=== PATIENT | female | born 1990 | race African-American/Black ===

== ENCOUNTER 2017-09-13 10:52 | Emergency (ER) | payer MEDICAID ==
--- NOTE | 2017-09-13 12:53 | ULT ---
RIGHT LOWER EXTREMITY VENOUS ULTRASOUND: HISTORY: Bilateral leg pain and discoloration of the right leg. TECHNIQUE: Multiplanar Cherry scale and color Doppler images are obtained in a right lower extremity venous ultra sound. Spectral analysis of the Doppler wave-forms was performed. FINDINGS: The right common femoral vein, profunda femoral vein, superficial femoral vein, and popliteal vein ar e normal in appearance without visible thrombus. These vessels demonstrate normal compression, flow, and augmentation. The right posterior tibial vein and greater saphenous vein are also patent. IMPRESSION: No evidence of deep venous thrombus. POS: [facility]
== END 2017-09-13 14:00 | disposition home or self-care (01) ==
LOC: ERS 10:52
DX: J06.9 Acute upper respiratory infection, unspecified (principal); D64.9 Anemia, unspecified; I10 Essential (primary) hypertension; F41.9 Anxiety disorder, unspecified

== ENCOUNTER 2017-12-01 00:54 | Emergency (ER) | payer SELFPAY ==
[2017-12-01] MEDS ORDERED: Ondansetron ODT 4 MG TAB ONE (01:32)
[2017-12-01] MEDS ORDERED: Famotidine 40 MG/4 ML VIAL SLOW IVP SCH (01:45)
[2017-12-01 01:48] LABS: #Basophils 0.2 thou/uL (0.0-0.2); #Eosinphils 0.5 thou/uL (0.0-0.7); #Lymphocytes 4.1 thou/uL (1.20-3.40); #Monocytes 0.6 thou/uL (0.11-0.59); %Basophils 1.6 % (0.0-1.0); %Eosinophils 5.1 % (0.0-10.0); %Lymphocytes 39.4 % (21.0-51.0); %Monocytes 5.8 % (0.0-10.0); %Neutrophils 48.1 % (42.0-75.0); Hemoglobin 13.6 g/dL (12.0-16.0); Mean Corpuscular HGB CONC 34.7 g/dL (32.0-36.0); Mean Corpuscular Hemoglobin 32.5 pg (27.0-31.0); Mean Corpuscular Volume 93.8 fl (81.0-99.0); Mean Platelet Volume 8.8 fL (7.4-10.4); Platelet Count 251 thou/uL (130-400); RBC Distribution Width 11.3 % (11.5-14.5); White Blood Cell (WBC) Count 10.3 thou/uL (4.8-10.8)
[2017-12-01 02:10] LABS: ALT (SGPT) 11 U/L (8-55); AST (SGOT) 15 U/L (5-34); Albumin 4.8 g/dL (3.5-5.0); Alkaline Phosphatase 48 U/L (40-150); Anion Gap 11 mmol/L (10-20); BUN (Urea Nitrogen) 6 mg/dL (7.0-18.7); Bilirubin, Total 1.2 mg/dL (0.2-1.2); CK (CPK) 90 U/L (29-168); Calc. Creatinine Clearance 0 mL/min (70-130); Calcium 9.5 mg/dL (7.8-10.44); Carbon Dioxide 23 mmol/L (22-29); Chloride 105 mmol/L (98-107); Estimated GFR-MDRD Greater than 90; Glucose 103 mg/dL (70-105); Lipase 17 U/L (8-78); Potassium 3.1 mmol/L (3.5-5.1); Protein, Total 7.8 g/dL (6.0-8.3); Sodium 136 mmol/L (136-145)
[2017-12-01 02:13] LABS: CKMB 0.4 ng/mL (0-6.6); Troponin I Less than 0.010 ng/mL (< 0.028)
[2017-12-01] MEDS ORDERED: Pot Chloride/Pot Bicarb/Cit Ac 25 mEq Effervescent Tablet ONE (02:19)
[2017-12-01] MEDS ORDERED: Lidocaine Viscous Sol 2% 15 ml UD Cup ONE (02:20)
[2017-12-01] MEDS ORDERED: Mag-Al 1200 mg/1200 mg/30 ML UDCUP ONE (02:20)
[2017-12-01 03:08] LABS: Bilirubin Negative (Negative); Blood, Urine Negative (Negative); Clarity CLEAR (Clear); Glucose, Urine (Dipstick) Negative (Negative); Leukocyte Negative (Negative); Nitrite Negative (Negative); Protein, Urine (Dipstick) Negative (Neg-Trace); Specific Gravity, Urine 1.009 (1.002-1.036); Urobilinogen 0.2 mg/dL (0.2-1.0); pH, Urine 6.5 (5.0-9.0)
[2017-12-01] MEDS ORDERED: Metoprolol Tartrate 5 MG/5 ML VIAL ONE ×2 (03:22→03:44)
== END 2017-12-01 04:15 | disposition home or self-care (01) ==
LOC: ERS 00:54
DX: E86.0 Dehydration (principal); I10 Essential (primary) hypertension; D64.9 Anemia, unspecified; F41.9 Anxiety disorder, unspecified
CPT/HCPCS: 80053; 81003; 82553; 83690; 84443; 84484; 85025; 93005; 96361; 96374; 96375; Q0162

== ENCOUNTER 2018-05-15 23:43 | Emergency (ER) | payer SELFPAY ==
[2018-05-16 00:30] LABS: #Basophils 0.1 thou/uL (0.0-0.2); #Eosinphils 0.5 thou/uL (0.0-0.7); #Lymphocytes 3.3 thou/uL (1.20-3.40); #Monocytes 0.4 thou/uL (0.11-0.59); #Neutrophils 3.5 thou/uL (1.40-6.50); %Basophils 1.7 % (0.0-1.0); %Eosinophils 6.6 % (0.0-10.0); %Lymphocytes 42.1 % (21.0-51.0); %Monocytes 5.1 % (0.0-10.0); %Neutrophils 44.6 % (42.0-75.0); Hemoglobin 13.6 g/dL (12.0-16.0); Mean Corpuscular HGB CONC 33.1 g/dL (32.0-36.0); Mean Corpuscular Hemoglobin 31.4 pg (27.0-31.0); Mean Corpuscular Volume 94.8 fL (78.0-98.0); Mean Platelet Volume 8.8 fL (7.4-10.4); Platelet Count 264 thou/uL (130-400); Red Blood Cell (RBC) Count 4.32 mill/uL (4.20-5.40); White Blood Cell (WBC) Count 7.8 thou/uL (4.8-10.8)
[2018-05-16 00:37] LABS: BHCG - Serum Negative (NEGATIVE); Pregs Control Background? CLEAR/WHITE (CLR/WHITE); Pregs Control Bar Appear? YES (CONTROL BAR)
[2018-05-16 00:51] LABS: ALT (SGPT) 12 U/L (8-55); AST (SGOT) 15 U/L (5-34); Albumin 4.5 g/dL (3.5-5.0); Alkaline Phosphatase 43 U/L (40-150); Anion Gap 12 mmol/L (10-20); BUN (Urea Nitrogen) 9 mg/dL (7.0-18.7); Bilirubin, Total 1.5 mg/dL (0.2-1.2); Calc. Creatinine Clearance 0 mL/min (70-130); Calcium 9.5 mg/dL (7.8-10.44); Carbon Dioxide 23 mmol/L (22-29); Chloride 105 mmol/L (98-107); Estimated GFR-MDRD Greater than 90; Glucose 95 mg/dL (70-105); Lipase 12 U/L (8-78); Potassium 3.8 mmol/L (3.5-5.1); Protein, Total 7.5 g/dL (6.0-8.3); Sodium 136 mmol/L (136-145)
[2018-05-16 02:53] LABS: Bilirubin Negative (Negative); Blood, Urine Negative (Negative); Clarity CLEAR (Clear); Glucose, Urine (Dipstick) Negative (Negative); Leukocyte Negative (Negative); Nitrite Negative (Negative); Protein, Urine (Dipstick) Negative (Neg-Trace); Specific Gravity, Urine 1.012 (1.002-1.036)
--- NOTE | 2018-05-16 08:31 | ULT ---
PRELIMINARY REPORT/[facility]/EMERGENTY AFTER-HOURS PROCEDURE US Abdomen Limited, Right Upper Quadrant EXAM DATE/TIME: 05/16/2018 3:00 AM CLINICAL HISTORY: 27 years old, female; Pain; Other: Upper abd TECHNIQUE: Real-time ultrasound of the abdomen with image documentation. Examination was focused on the right up per quadrant. COMPARISON: No relevant prior studies available. FINDINGS: Liver: Normal. No masses. Gallbladder: Normal. No gallstones. There is no gallbladder wall thickening. Common bile duct: Normal. No stones. No dilation. Pancreas: Visualized pancreas is unremarkable. Right kidney: Normal. No mass. No hydronephrosis. IMPRESSION: No acute findings. Thank you for allowing us to participate in the care of your patient. Dictated and Authenticated by: Rk Diego MD 05/16/2018 3:45 AM Central Time ([place] & [place]) FINAL REPORT EMERGENT AFTER HOURS RIGHT UPPER QUADRANT ULTRASOUND: DATE: 05/16/2018. HISTORY: Right upper quadrant abdominal pain. IMPRESSION: 1. No gallbladder calculi are seen, and there is no gallbladder wall thickening or pericholecystic f luid. 2. The common duct is normal in caliber measuring 0.3 cm in diameter. 3. No acute findings are seen in the right upper quadrant ultrasound. 4. Findings are in agreement with the preliminary report by [facility]. POS: [facility]
== END 2018-05-16 04:41 | disposition home or self-care (01) ==
LOC: ERS 23:43
DX: K80.50 Calculus of bile duct without cholangitis or cholecystitis without obstruction (principal); D64.9 Anemia, unspecified; I10 Essential (primary) hypertension; F41.9 Anxiety disorder, unspecified; Z79.899 Other long term (current) drug therapy
CPT/HCPCS: 36415; 76705; 80053; 81003; 83690; 84703; 85025

== ENCOUNTER 2018-06-01 07:09 | Outpatient (CLI) | payer OTHER ==
--- NOTE | 2018-06-01 12:09 | NM ---
HIDA SCAN: History: History of cholecystitis. Comparison: Right upper quadrant ultrasound, 05-16-18 Radiopharmaceutical: 5.1 mCi Technetium 99M Mebrofenin IV FINDINGS: The gallbladder is demonstrated by the 5 minute time lj. Bowel activity is demonstrated by the 20 m inute time lj. Gallbladder ejection fraction is 52% after administration of 8 oz of Ensure. IMPRESSION: Normal HIDA scan. POS: [facility]
== END 2018-06-01 07:10 | disposition home or self-care (01) ==
LOC: NM 07:09
PROVIDERS: ATTEND Specialist
DX: K81.9 Cholecystitis, unspecified (principal); K90.0 Celiac disease
CPT/HCPCS: 78227; A9537

== ENCOUNTER 2018-06-03 10:58 | Day surgery (SDC) | payer OTHER, SELFPAY ==
--- NOTE | 2018-06-02 13:30 | HP ---
HISTORY OF PRESENT ILLNESS: Chiquita Gilman is a 27-year-old black female with history of tubal ligat ion. 3, para 3. She has had intermittent epigastric pain with back radiation, nausea for se veral years. She has had upper and lower endoscopies diagnosed with celiac disease. Ultrasound gall bladder demonstrating normal findings and past CAT scans have been negative. On 05/2018, comprehensi ve metabolic profile normal except for mildly elevated bilirubin at [facility]. She underwe nt a HIDA scan ejection fraction, 52% ejection fraction. Ensure consumption reproduced her epigastri c pain, epigastric right upper quadrant pain. Shivam was called in for her last night. Today we wer e discussing treatment options. We talked about the possibility of a false negative ultrasound and p ossibility of cholesterolosis causing her symptoms. She has had a complete thorough workup with uppe r and lower endoscopies, ultrasounds, CAT scans. I have told her that laparoscopic cholecystectomy m ay help her, but I cannot 100% guarantee it will relieve her pain. Complicating this matter is her l ack of financial resources and she has been self-pay for all these endeavors. At this point, we have discussed laparoscopic cholecystectomy. I explained the risk of infection, bleeding, reoperation, v isceral injury, biliary injury, and she wished to proceed with laparoscopic cholecystectomy. She und erstands the risks and benefits. We will not need to repeat labs. We will plan this as an outpatien t tomorrow. ALLERGIES: None. TOBACCO: None. ALCOHOL: None. PAST SURGICAL HISTORY: Tubal ligation, upper and lower endoscopies. PAST MEDICAL HISTORY: Anemia, anxiety, celiac disease. MEDICATIONS: Metoprolol 25 mg a day, p.r.n. Advil and Tylenol. REVIEW OF SYSTEMS: Ten point noncontributory. 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 She was working. She lives in [place]. PHYSICAL EXAMINATION: VITAL SIGNS: Weight 139 pounds, 5 foot 8 inches, 141/93, 71, 97.6 degrees. LUNGS: Clear to auscultation. CARDIAC: Regular rate and rhythm without murmur or gallop. ABDOMEN: Soft. Mild tenderness in epigastric and right upper quadrant without guarding or rebound. Negative Cortez sign. EXTREMITIES: Unremarkable. ASSESSMENT AND PLAN: Acalculous cholecystitis. As discussed above we will proceed with laparoscopic cholecystectomy outpatient. She understands the risks and benefits of surgery and consents. Marcy mcclelland answered.
[2018-06-03] MEDS ORDERED: CEFAZOLIN/Water 2 GM/20 ML SYRINGE ONE (12:37)
[2018-06-03] MEDS ORDERED: Ketorolac Tromethamine 30 MG/ML VIAL ONE (12:37)
[2018-06-03] MEDS ORDERED: Bupivacaine HCl 0.5%/Epinephrine 1:200,000/PF 30 ml Vial ONE (12:54)
[2018-06-03] MEDS ORDERED: Iothalamate Meglumine 60% 50 ML VIAL FS ONE (12:54)
[2018-06-03] MEDS ORDERED: Midazolam HCl 2 mg/2 ml Vial ONE (12:55)
[2018-06-03] MEDS ORDERED: Fentanyl 100 MCG/2 ML VIAL ONE ×3 (12:55→14:58)
[2018-06-03] MEDS ORDERED: Midazolam HCl 2 mg/ml Syrup 5 ml UD Cup ONE (12:55)
[2018-06-03] MEDS ORDERED: Promethazine HCl 25 MG/ML VIAL ONE (12:58)
[2018-06-03] MEDS ORDERED: ePHEDrine/0.9% NaCl/PF SYRINGE 50 mg/10 ml ONE (13:13)
[2018-06-03] MEDS ORDERED: PROPOFOL 200 MG/20 ML VIAL ONE (13:13)
[2018-06-03] MEDS ORDERED: Glycopyrrolate 0.2 MG/ML 5 ML SYRINGE ONE (13:13)
[2018-06-03] MEDS ORDERED: Dexamethasone 20 MG/5 ML VIAL ONE (13:13)
[2018-06-03] MEDS ORDERED: Lidocaine 1% PF 5 ML VIAL ONE (13:13)
[2018-06-03] MEDS ORDERED: Ondansetron PF 4 MG/2 ML Vial ONE (13:13)
--- NOTE | 2018-06-03 15:12 | RAD ---
CHOLANGIOGRAM IN SURGERY: Comparison: Gallbladder ultrasound, 05-16-18 History: Cholecystectomy with elevated LFTs. FINDINGS/IMPRESSION: A single intraoperative fluoroscopic view was taken during a cholangiogram in surgery was performed. Contrast was seen within the common bile duct, cystic duct and duodenum. No obvious filling defects a re appreciated. There is contrast that is in the region of the duodenum which appears to have leaked, but this may simply be within the duodenum. POS: [facility]
[2018-06-03] MEDS ORDERED: HYDROcodone/Acetaminophen 5/325 mg Tablet ONE (15:54)
--- NOTE | 2018-06-03 15:57 | OP ---
DATE OF PROCEDURE: 06/03/2018 PREOPERATIVE DIAGNOSES: Chronic epigastric pain, cholecystitis, normal esophagogastroduodenoscopy, c olonoscopy, gallbladder ultrasound, HIDA scan, ejection fraction 52% with reproduction of her symptom s with gallbladder stimulation. Normal LFTs, normal caliber bile duct although bilirubin slightly el evated at 1.6. POSTOPERATIVE DIAGNOSES: Chronic epigastric pain, cholecystitis, normal esophagogastroduodenoscopy, colonoscopy, gallbladder ultrasound, HIDA scan, ejection fraction 52% with reproduction of her sympto ms with gallbladder stimulation. Normal LFTs, normal caliber bile duct although bilirubin slightly e levated at 1.6. SURGEON: Vlad Guzmán M.D. ANESTHESIA: General. Local 0.5% Marcaine with epinephrine 30 mL. PROCEDURE: Video cholecystectomy. PROCEDURE IN DETAIL: The patient was taken to the operating room where under general anesthesia, abd omen was prepared with ChloraPrep, draped in routine fashion. Infraumbilical incision made and pneum operitoneum to 15 mmHg obtained with the Veress needle, replacing it with a 5 port and video laparosc ope inserted. Right subxiphoid incision made and 11 port placed. Right subcostal incision made mid clavicular anterior axillary lines and 5 ports placed. Fundus of the gallbladder grasped at cephalad . Infundibulum grasped and reflected laterally. Cystic artery and duct dissected free. Critical vi ew obtained. Cystic artery double clipped proximally. Cystic ducts then clipped on the gallbladder side. Opening made in the cystic duct, cholangiocath inserted and cholangiogram was obtained using f luoroscopy. Fluoroscopy revealed normal cholangiogram where the small caliber bile, common hepatic, common bile, and left and right hepatic ducts with normal flow into the duodenum. Cystic duct doubly clipped after cholangiocatheter removed and cystic artery and duct divided and gallbladder dissected free from liver bed obtaining good hemostasis prior to division of final peritoneal attachments. Go od hemostasis noted. Appendix is expected to be normal. Pelvis inspected and noted to be normal. N o other abnormalities appreciated. Irrigant and pneumoperitoneum evacuated. All instruments removed and all skin incisions approximated with interrupted subdermal 4-0 Monocryl and DermaGlue applied.
== END 2018-06-03 17:00 | disposition home or self-care (01) ==
LOC: SDC 10:58
PROVIDERS: ATTEND Specialist
PROC: 0FT44ZZ Resection of Gallbladder, Percutaneous Endoscopic Approach (ICD-10-PCS; principal; 2018-06-03)
PROC: BF121ZZ Fluoroscopy of Gallbladder using Low Osmolar Contrast (ICD-10-PCS; principal; 2018-06-03)
DX: K81.1 Chronic cholecystitis (principal); D64.9 Anemia, unspecified; Z79.899 Other long term (current) drug therapy
CPT/HCPCS: 47532; 88304; 93005; 93010; 96374; J0131; J0670; J1610; J1885; J2250; J2550; J3010; Q9961

== ENCOUNTER 2019-01-21 05:58 | Observation (INO) | payer OTHER, SELFPAY ==
[2019-01-21 06:40] LABS: #Basophils 0.1 thou/uL (0.0-0.2); #Eosinphils 0.4 thou/uL (0.0-0.7); #Lymphocytes 2.7 thou/uL (1.20-3.40); #Monocytes 0.7 thou/uL (0.11-0.59); #Neutrophils 3.7 thou/uL (1.40-6.50); %Basophils 0.9 % (0.0-1.0); %Eosinophils 4.8 % (0.0-10.0); %Lymphocytes 35.6 % (21.0-51.0); %Monocytes 9.3 % (0.0-10.0); %Neutrophils 49.5 % (42.0-75.0); Hemoglobin 13.1 g/dL (12.0-16.0); Mean Corpuscular HGB CONC 33.4 g/dL (32.0-36.0); Mean Corpuscular Volume 95.8 fL (78.0-98.0); Mean Platelet Volume 9.5 fL (7.4-10.4); Platelet Count 147 thou/uL (130-400); RBC Distribution Width 11.1 % (11.5-14.5); Red Blood Cell (RBC) Count 4.09 mill/uL (4.20-5.40); White Blood Cell (WBC) Count 7.5 thou/uL (4.8-10.8)
[2019-01-21] MEDS ORDERED: Morphine 4 MG/ML VIAL ONE (06:42)
[2019-01-21] MEDS ORDERED: Ketorolac Tromethamine 30 MG/ML VIAL ONE (06:42)
[2019-01-21] MEDS ORDERED: Ondansetron PF 4 MG/2 ML Vial ONE (06:42)
[2019-01-21 06:44] LABS: Bilirubin Negative (Negative); Blood, Urine Small (Negative); Clarity CLEAR (Clear); Glucose, Urine (Dipstick) Negative (Negative); Leukocyte Negative (Negative); Nitrite Negative (Negative); Protein, Urine (Dipstick) Negative (Neg-Trace); Specific Gravity, Urine 1.005 (1.002-1.036); Urobilinogen 0.2 mg/dL (0.2-1.0)
[2019-01-21 06:46] LABS: Pathc Cast-AUWi Flag 0.95 (0-2.49)
[2019-01-21 06:54] LABS: Pregnancy Test - Urine (BHCG) Negative (Negative); Pregu Control Background? CLEAR/WHITE (CLR/WHITE); Pregu Control Bar Appear? YES (CONTROL BAR); Specific Gravity 1.005 (1.002-1.036)
[2019-01-21 06:57] LABS: ALT (SGPT) 18 U/L (8-55); AST (SGOT) 18 U/L (5-34); Albumin 4.7 g/dL (3.5-5.0); Alkaline Phosphatase 44 U/L (40-150); Anion Gap 10 mmol/L (10-20); BUN (Urea Nitrogen) 8 mg/dL (7.0-18.7); Bilirubin, Total 1.3 mg/dL (0.2-1.2); Calc. Creatinine Clearance 0 mL/min (70-130); Calcium 9.6 mg/dL (7.8-10.44); Carbon Dioxide 25 mmol/L (22-29); Chloride 102 mmol/L (98-107); Estimated GFR-MDRD Greater than 90; Globulin 2.9 g/dL (2.4-3.5); Glucose 105 mg/dL (70-105); Lipase 18 U/L (8-78); Potassium 3.2 mmol/L (3.5-5.1); Protein, Total 7.6 g/dL (6.0-8.3); Sodium 134 mmol/L (136-145)
[2019-01-21] MEDS ORDERED: Magnesium 2 GM/50 ML BAG (IN WATER) ONE (06:57)
[2019-01-21 07:04] LABS: Bacteria/HPF Rare-Few HPF (None Seen); RBC/HPF 0-3 HPF (0-3); Squamous Epithelial 0-3 HPF (0-3); WBC/HPF 0-3 HPF (0-3)
[2019-01-21 07:30] LABS: Amphetamine Not Detected (NotDetected); Barbiturates Screen Not Detected (NotDetected); Benzodiazepine Screen Not Detected (NotDetected); Cocaine Metabolite Screen Not Detected (NotDetected); Medtox Control Line Valid? VALID (VALID); Medtox Reader # READER 4; Methadone Not Detected (NotDetected); Methamphetamine Not Detected (NotDetected); Opiate Screen Not Detected (NotDetected); Oxycodone Screen Not Detected (NotDetected); Phencyclidine (PCP) Not Detected (NotDetected); THC/Cannabinoid Screen Not Detected (NotDetected); Tricyclic Screen Detected (NotDetected)
--- NOTE | 2019-01-21 08:15 | CT ---
CTA CHEST WITH IV CONTRAST AND 3D POSTPROCESSING CTA ABDOMEN WITH IV CONTRAST AND 3D POSTPROCESSING: HISTORY: Chest pain. FINDINGS: There is good opacification of the thoracoabdominal aorta without aneurysm or dissection. No pleural or pericardial effusions are seen. A thymic remnant is present. No pneumothoraces, focal areas of consolidation, lung nodules, or masses are identified. No free air or free fluid is seen in the abdomen. The patient is post cholecystectomy. There is goo d flow and normal caliber of the celiac axis, SMA, JOSE, and renal arteries. The liver, spleen, pancreas, adrenal glands, and kidneys are normal. A normal-appearing appendix is present. No acute osseous abnormalities are seen. IMPRESSION: No evidence of aortic aneurysm or dissection. POS: [facility]
--- NOTE | 2019-01-21 08:23 | RAD ---
EXAM: Single view of the chest HISTORY: Chest pain COMPARISON: 11/08/2016 FINDINGS: Single view of the chest shows a normal sized cardiomediastinal silhouette. There is no marko dence of consolidation, mass, or pleural effusion. The bones are unremarkable. IMPRESSION: No evidence of acute cardiopulmonary disease
[2019-01-21 09:55] LABS: Troponin I Less than 0.010 ng/mL (< 0.028)
[2019-01-21 13:01] VITALS: BMI 21.9
[2019-01-21] MEDS ORDERED: Senokot S 8.6-50 MG TAB PO PRN (13:06)
[2019-01-21] MEDS ORDERED: Acetaminophen 325 MG TAB PO PRN (13:06)
[2019-01-21] MEDS ORDERED: Bisacodyl 10 MG SUPP PR PRN (13:06)
[2019-01-21] MEDS ORDERED: Atenolol 25 MG TAB PO SCH (13:15)
[2019-01-21 14:42] LABS: Thyroid Stimulating Hormone 1.5149 uIU/mL (0.35-4.94)
[2019-01-21] MEDS ORDERED: Potassium Chloride 20 MEQ TAB PO SCH (15:30)
--- NOTE | 2019-01-21 16:01 | HP ---
REASON FOR ADMISSION: Chest discomfort, dizziness, palpitations. HISTORY OF PRESENTING ILLNESS: The patient says she started a new muscle relaxant, which she took around 1 a.m. after she finished her work and came back home around 12:30 a.m. yesterday. Soon, the patient felt dizzy. She also mentions that she has anxiety and takes amitriptyline for the same and tried taking it. During the course of this incident, the patient also developed left-sided chest pain with some radiation to the back and shoulders. This was 2 to 3/10 in intensity. This pain apparently radiated to left upper extremity as well. The patient says she has not been taking her blood pressure medications as her blood pressures have been normal and this was taken off by her primary care physician. She is also seeing Dr. Dowd for generalized body aches with possible diagnosis of fibromyalgia. She has been initiated on naltrexone one-fourth of a tablet of [address] Dowd , which she has not started yet. She was also given a prescription for Lyrica, which she has not started yet. PAST MEDICAL AND SURGICAL HISTORY: History of celiac disease, which has been diagnosed with endoscopy per the patient. Hypertension, fibromyalgia, chronic anemia, tubal ligation. The patient has had endometrial ablation in the past for heavy bleeding. CURRENT MEDICATIONS: 1. Amitriptyline 25 mg p.o. daily. 2. Flexeril 5 mg p.r.n. 3. Atenolol 25 mg daily, which she stopped from two days. 4. Naltrexone 50 mg one-fourth of a tablet daily. ALLERGIES: NO KNOWN DRUG ALLERGIES. PERSONAL HISTORY: Does not abuse alcohol or drugs. No history of smoking. 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 FAMILY HISTORY: Mother has history of osteoporosis, fibromyalgia, and hypertension and is living. Father in his 40s from motor vehicle accident. Ms. Gilman has two girls and one boy as a children. She is , lives with her . CODE STATUS: Full. POWER OF NUCLEAR MEDICINE PHYSICIAN: Her . REVIEW OF SYSTEMS: CONSTITUTIONAL: Negative for weight loss or gain, ability to conduct usual activities. SKIN: Negative for rash, itching. EYES: Negative for double vision, pain. ENT/MOUTH: Negative for nose bleeding, neck stiffness, pain, tenderness. CARDIOVASCULAR: Negative for palpitations, dyspnea on exertion, orthopnea. RESPIRATORY: Negative for shortness of breath, wheezing, cough, hemoptysis, fever or night sweats. GASTROINTESTINAL: Negative for poor appetite, abdominal pain, heartburn, nausea , vomiting, constipation, or diarrhea. GENITOURINARY: Negative for urgency, frequency, dysuria, nocturia. MUSCULOSKELETAL: Negative for pain, swelling. NEUROLOGIC/PSYCHIATRIC: Negative for anxiety, depression. ALLERGY/IMMUNOLOGIC: Negative for skin rash, bleeding tendency. PHYSICAL EXAMINATION: GENERAL: The patient is a 28-year-old female, who is currently not in any acute distress. VITAL SIGNS: Blood pressure on arrival was 153/103, pulse 120 per minute, respiratory rate 20 per minute, temperature 97.8 degrees Fahrenheit, and saturating 100% on room air. NECK: Supple. No elevated JVD. HEENT: Eyes; extraocular muscles intact. Pupils reacting to light. Oral cavity, mucous membranes are moist. No exudates or congestion. CARDIOVASCULAR: S1 and S2 heard. Tachycardic. RESPIRATORY: Air entry 2+ bilateral. No rales or rhonchi. ABDOMEN: Soft. Bowel sounds heard. No tenderness, rigidity, or guarding. EXTREMITIES: No peripheral edema or calf tenderness. VASCULAR: Peripheral pulses 1+ bilateral. No ischemic ulcerations or gangrene. CENTRAL NERVOUS SYSTEM: No gross focal deficits noted. The patient is alert, awake, and oriented well. PSYCHIATRIC: The patient's mood is a bit anxious, otherwise no hallucinations or delusions. LABORATORY DATA: Chest x-ray done shows no acute cardiopulmonary abnormality. CT aortic dissection protocol done shows no evidence of dissection or aneurysm. No pleural or pericardial effusions are seen. No pneumothorax or consolidation. No free air in the abdomen. The patient has prior history of cholecystectomy. The throat swab for strep throat is negative. Urine drug screen is positive for tricyclics. Urine test is negative. Free T4 of 1.0, free T3 of 2.75 , TSH 1.51. Troponin x2 negative. Potassium 3.2, bicarb 25, BUN 8, creatinine 0.8. White count of 7, H and H 13 and 39, platelet count 147, MCV is 95. EKG done shows sinus tach at 143 beats per minute at 6:57 a.m. The repeat EKG done at 9:08 a.m. shows normal sinus rhythm at 100 beats per minute. CLINICAL IMPRESSION AND PLAN: The patient will be under observation for atypical chest pain with tachycardia and dizziness. The patient also stopped her atenolol 24 to 36 hours back and it is unclear if her tachycardia is due to withdrawal of beta dereck. Her thyroid labs are within normal limits. She in fact has gotten a total of 4 L of normal saline bolus in the ER. She has also gotten 2 mg of magnesium sulfate in the ER. We will give her a dose of K-Dur. The patient will be placed on Lopressor 50 mg twice daily. There are no signs or symptoms of any infection at present. Her white count is normal with normal differential. No temperature. We will monitor her overnight and if the patient is comfortable, she will be discharged in the morning. Job ID: [id number] MTDD
[2019-01-21] MEDS: Famotidine 20 MG TAB PO SCH (20:28)
[2019-01-21] MEDS: Metoprolol Tartrate 50 MG TAB PO SCH (20:28)
[2019-01-22 05:29] LABS: #Basophils 0.1 thou/uL (0.0-0.2); #Eosinphils 0.5 thou/uL (0.0-0.7); #Lymphocytes 2.6 thou/uL (1.20-3.40); #Monocytes 0.4 thou/uL (0.11-0.59); #Neutrophils 2.9 thou/uL (1.40-6.50); %Eosinophils 7.5 % (0.0-10.0); %Lymphocytes 40.1 % (21.0-51.0); %Monocytes 6.7 % (0.0-10.0); %Neutrophils 44.7 % (42.0-75.0); Hemoglobin 11.7 g/dL (12.0-16.0); Mean Corpuscular HGB CONC 33.7 g/dL (32.0-36.0); Mean Corpuscular Hemoglobin 32.8 pg (27.0-31.0); Mean Corpuscular Volume 97.2 fL (78.0-98.0); Mean Platelet Volume 9.4 fL (7.4-10.4); Platelet Count 179 thou/uL (130-400); RBC Distribution Width 11.2 % (11.5-14.5); Red Blood Cell (RBC) Count 3.56 mill/uL (4.20-5.40); White Blood Cell (WBC) Count 6.4 thou/uL (4.8-10.8)
[2019-01-22 05:49] LABS: Anion Gap 9 mmol/L (10-20); BUN (Urea Nitrogen) 5 mg/dL (7.0-18.7); Calc. Creatinine Clearance 125 mL/min (70-130); Calcium 8.5 mg/dL (7.8-10.44); Carbon Dioxide 22 mmol/L (22-29); Chloride 108 mmol/L (98-107); Estimated GFR-MDRD Greater than 90; Glucose 86 mg/dL (70-105); Potassium 4.2 mmol/L (3.5-5.1); Sodium 135 mmol/L (136-145)
[2019-01-22 07:51] VITALS: BP 117/77; TEMP 98.5
[2019-01-22] MEDS: Famotidine 20 MG TAB PO SCH (08:20)
[2019-01-22] MEDS: Metoprolol Tartrate 50 MG TAB PO SCH (08:20)
[2019-01-22] MEDS ORDERED: Multivitamin W/ Minerals 1 TAB PO SCH (09:00)
--- NOTE | 2019-01-22 11:07 | DIS ---
DATE OF ADMISSION: 01/21/2019 DATE OF DISCHARGE: 01/22/2019 DISCHARGE DISPOSITION: Home. PRIMARY DISCHARGE DIAGNOSES: Chest discomfort, palpitations, dizziness, all of which resolved. SECONDARY DISCHARGE DIAGNOSES: History of celiac disease, fibromyalgia, uncontrolled hypertension on arrival, chronic anemia. PROCEDURES DONE DURING HOSPITALIZATION: Throat swab for strep is negative. Hemoglobin and hematocrit of 11 and 34, platelet count 179, MCV is 97. D-dimer was less than 0.27, free T4 of 1.0, free T3 of 2.75, TSH 1.51. Troponin x2 negative. Urine test negative. Urine drug screen was positive for tricyclics. CT aortic dissection protocol done showed no evidence of aneurysm or dissection. DISCHARGE MEDICATIONS: 1. Metoprolol 50 mg twice daily. 2. Naltrexone 50 mg, one-fourth of a tablet daily per Dr. Dowd's advise. 3. Multivitamin one tablet once daily. 4. Nexium 20 mg daily. ALLERGIES: NO KNOWN DRUG ALLERGIES. DISCHARGE PLAN: The patient to follow up with primary care physician in [address] Dowd as advised. BRIEF COURSE DURING HOSPITALIZATION: The patient initially came in with complaints of dizziness, chest discomfort, and palpitations. She had stopped taking her hypertension medications. The patient had persistent tachycardia in the ER and was evaluated for nearly 3 to 4 hours with nearly 4 L of bolus fluid given. None of this helped her tachycardia. She was placed under observation on telemetry. The patient also was placed on Lopressor 50 mg twice daily. A thyroid function test have all been normal. She does not have any signs or symptoms of sepsis or infection. Likely her persistent tachycardia was due to withdrawal from atenolol. Her heart rates have ranged from 79 to 86 in the last 12 hours. The patient's symptoms have completely resolved with this. She is ambulating and eating well prior to discharge. Please note, I have seen and examined the patient on the day of discharge. Job ID: [id number] [facility]
--- NOTE | 2019-01-28 12:21 | EKG ---
Test Reason : Blood Pressure : / mmHG Vent. Rate : 113 BPM Atrial Rate : 113 BPM P-R Int : 170 ms QRS Dur : 078 ms QT Int : 326 ms P-R-T Axes : 068 023 030 degrees QTc Int : 447 ms Sinus tachycardia Otherwise normal ECG Confirmed by ALEXIS RUIZ ([id number]), editor publications VIOLETA SHIN ([id number]) on 01/28/2019 12:21:01 PM Referred By: Confirmed By:ALEXIS RUIZ
--- NOTE | 2019-01-28 12:24 | EKG ---
Test Reason : EMERGENCY EXAM Blood Pressure : / mmHG Vent. Rate : 143 BPM Atrial Rate : 143 BPM P-R Int : 122 ms QRS Dur : 078 ms QT Int : 350 ms P-R-T Axes : 028 028 051 degrees QTc Int : 540 ms Sinus tachycardia Nonspecific ST and T wave abnormality Abnormal ECG Prolonged QTc Confirmed by ALEXIS RUIZ ([id number]), commercial production editor VIOLETA SHIN ([id number]) on 01/28/2019 12:23:59 PM Referred By: Confirmed By:ALEXIS RUIZ
== END 2019-01-22 09:52 | disposition home or self-care (01) ==
LOC: ERS 05:58 → 2SW 12:14
PROVIDERS: ADMIT Internal Medicine; ATTEND Internal Medicine
DX: I45.81 Long QT syndrome (principal); R07.9 Chest pain, unspecified; R55 Syncope and collapse; R00.0 Tachycardia, unspecified; D64.9 Anemia, unspecified; I10 Essential (primary) hypertension; F41.9 Anxiety disorder, unspecified; Z79.899 Other long term (current) drug therapy
CPT/HCPCS: 36415; 71045; 71275; 80048; 80053; 80306; 81003; 81015; 81025; 83690; 83735; 84439; 84443; 84481; 84484; 85025; 85379; 87081; 87430; 93005; 96361; 96365; 96375; G0378; J1885; J2270; J2405; J3475